=== PATIENT | female | born 1955 | race Caucasian/White ===

== ENCOUNTER 2024-11-16 17:18 | Emergency (ER) | payer MEDICARE ==
[2024-11-16 18:20] LABS: MEAN PLATELET VOLUME 8.9 fL (7.1-12.4); PLATELET COUNT,PLT 393 x10(3)uL (151-488); RED BLOOD CELL COUNT 3.26 x10(6)uL (3.60-5.20); RED CELL DISTRIBUTION WIDTH 13.7 % (12.3-16.5); WHITE BLOOD CELL COUNT,WBC 19.9 x10-3/uL (3.0-10.3)
[2024-11-16 18:27] LABS: A/G RATIO 0.4; ALANINE AMINOTRANSFERASE,ALT 8 U/L (12-36); ASPARTATE AMNIOTRANSFERASE,AST 35 IU/L (5-25); BILIRUBIN TOTAL 0.6 mg/dL (0.1-1.3); BLOOD UREA NITROGEN,BUN 13 mg/dL (7-18); CARBON DIOXIDE,CO2 29 mmol/L (21-32); CHLORIDE,CL 101 mmol/L (100-110); CREATININE 1.0 mg/dL (0.55-1.02); ESTIMATED GFR 61 mL/min (>60); GLUCOSE RANDOM 109 mg/dL (80-116); PROTEIN TOTAL,TP 7.3 g/dL (6.0-8.0); SODIUM,NA 140 mmol/L (135-145)
[2024-11-16 18:38] LABS: POTASSIUM,K 2.7 mmol/L (3.5-5.3); PRO B-TYPE NATRIUR PEPT,BNPPRO 1737.0 pg/mL (<=125)
[2024-11-16 18:43] LABS: LYMPHOCYTES PERCENT MAN 14 % (13-37); MONOCYTES PERCENT MAN 5 % (4-12); SEG NEUTROPHILS PERCENT MAN 81 % (46-82)
[2024-11-16 18:51] LABS: INFLUENZA A NAA NEGATIVE (NEGATIVE); INFLUENZA B NAA NEGATIVE (NEGATIVE); RESPIRATORY SYNCYTIAL VIR NAA NEGATIVE (NEGATIVE)
[2024-11-16 18:52] LABS: CORONAVIRUS COVID-19 NAA NEGATIVE (NEGATIVE)
[2024-11-16] MEDS: LORazepam 2 MG/ML SDV IVPUSH ONE (19:33)
[2024-11-16] MEDS: Potassium Chloride 20 MEQ Tab.ER PO ONE (20:12)
[2024-11-16] MEDS: Iopamidol 755 Mg/ML 100 ML Bottle IV SCH (20:58)
[2024-11-16] MEDS: Magnesium Sulf 1 GM/2 mL SDV 1 GM in Sodium Chloride 0.9% 50 ML IV ONE (22:09)
== END 2024-11-17 00:45 ==
LOC: FB.ED 17:18
DX: J44.1 Chronic obstructive pulmonary disease with (acute) exacerbation (principal); J85.2 Abscess of lung without pneumonia; J94.8 Other specified pleural conditions; E88.09 Other disorders of plasma-protein metabolism, not elsewhere classified; D64.9 Anemia, unspecified; R94.31 Abnormal electrocardiogram [ECG] [EKG]; E27.9 Disorder of adrenal gland, unspecified; R79.89 Other specified abnormal findings of blood chemistry; I10 Essential (primary) hypertension; F17.210 Nicotine dependence, cigarettes, uncomplicated; Z88.2 Allergy status to sulfonamides; Z79.899 Other long term (current) drug therapy
CPT/HCPCS: 36415; 71046; 71250; 74177; 80053; 83735; 83880; 84484; 85025; 86140; 87040; 87637; 93005; 94640; 96374; 96375; 99285; A9270; J2060; Q9967; 93010